=== PATIENT | female | born 1985 | race Asian ===

== ENCOUNTER 2025-06-10 11:12 | Emergency (ER) | payer BC, SELFPAY ==
[2025-06-10 11:15] VITALS: BP 105/71
--- NOTE | 2025-06-10 12:02 | ED.GENMED ---
History of Present Illness
General
Chief Complaint: Swelling
Source: patient
Exam Limitations: none
Time Seen by Provider: 06/10/25 11:56
Nursing documentation reviewed up to this point in time: agreed with
History of Present Illness
History of Present Illness:
39-year-old female with no significant past medical history presents for waxing and waning right arm swelling and heaviness for the past 3 days. She flew to and from [place] on 06/02 and 06/07. No other significant factors for blood
clots. She denies chest pain but states she does feel like she has to 'catch my breath,' at times. She denies numbness or tingling in the extremity it just 'feels heavy.'
Past History
Past History
ED Past Medical History: None
ED Past Surgical History:
Social History
Tobacco: Non-smoker
Alcohol: None
Personal:
Living: with family
Employment: Not employed
Review of Systems
Review of Systems
Allergies reviewed?: Yes
All Other Systems: ROS reviewed and negative except as documented in HPI and ROS
Phy Exam
Physical Exam
Physical Exam:
GENERAL: No acute distress. A&Ox3.
CONSTITUTIONAL: Afebrile.
EYES: clear, conjunctivae normal
ENMT: moist mucus membranes, Pharynx nl
RESPIRATORY: Regular respirations, nonlabored, lungs clear.
CARDIOVASCULAR: Regular rate and rhythm, no murmurs, no rubs.
GI: Soft, nontender, normal BS
MUSCULOSKELETAL: Moves with ease. Well perfused. Tender to palpate right upper trapezius and cervical soft tissues. Full ROM of neck, no spinal bony tenderness. Right arm slightly more swollen compared to left. Tender to palpate anterior
axillary area, (she does have a chronic soft tissue mass here that is from auxiliary excess breast tissue). Normal radial, ulnar and brachial pulses. Brisk capillary refill all fingers but slightly delayed in right fingers compared to left..
Strength 5/5, full ROM.
SKIN: Warm, dry, normal
PSYCH: Normal mood and affect. Well kept, interactive and appropriate
NEUROLOGIC: Awake, alert and oriented. No focal neurological deficits
Course
Orders/Labs/Results
Orders:
Orders
06/10/25 12:02
US Periph Venous UPPER Ext RT Urgent
Comment:
Reason For Exam: swelling, heaviness after flight
06/10/25 13:17
Test Result ONCE
06/10/25 14:07
Complete Blood Count/With Diff Urgent
Comprehensive Metabolic Panel Urgent
HCG, Serum Qualitative Screen Urgent
Protime/PTT Urgent
06/10/25 14:22
Apixaban [Eliquis] 10 mg PO NOW STA
06/10/25 16:04
Complete Blood Count/With Diff Urgent
Abnormal Lab Results
06/10/25 06/10/25
14:07 16:04
WBC 4.5 L 10^3/uL
(4.8-10.8)
RBC 6.22 H 10^6/uL 5.99 H 10^6/uL
(4.20-5.40) (4.20-5.40)
Hgb 11.2 L g/dL 11.0 L g/dL
(12.0-16.0) (12.0-16.0)
Hct 36.3 L %
(37.0-47.0)
MCV 60.5 L fL 60.6 L fL
(81.0-99.0) (81.0-99.0)
MCH 18.0 L pg 18.4 L pg
(27.0-31.0) (27.0-31.0)
MCHC 29.8 L g/dL 30.3 L g/dL
(33.0-37.0) (33.0-37.0)
RDW 15.8 H % 15.4 H %
(11.5-14.5) (11.5-14.5)
Monocytes % 11.9 H % 12.5 H %
(1.7-9.3) (1.7-9.3)
Chloride 108 H mmol/L
(98-107)
06/10/25 16:04
06/10/25 14:07
Vital Signs
Initial and Last Documented VS:
Initial Vital Signs
Temp Pulse Resp BP Pulse Ox
98.2 F 80 20 105/71 99
06/10/25 11:15 06/10/25 11:15 06/10/25 11:15 06/10/25 11:15 06/10/25 11:15
Last Documented Vital Signs
Temp Pulse Resp BP Pulse Ox
98.2 F 68 17 98/63 100
06/10/25 17:02 06/10/25 17:02 06/10/25 17:02 06/10/25 17:02 06/10/25 17:02
[employer] [employer] Operator consulted with Physician
[place] [employer] Operator consulted with physician?: Yes
Name of Physician Consulted: Akila
MDM/Problems Addressed
Differential Diagnosis Includes:
DVT, arterial occlusion
MDM/Problems Addressed:
39-year-old female with no significant past medical history presents for waxing and waning right arm swelling and heaviness for the past 3 days. She flew to and from [place] and [place] on 06/02 and 06/07. No other significant factors for blood
clots. She denies chest pain but states she does feel like she has to 'catch my breath,' at times. She denies numbness or tingling in the extremity it just 'feels heavy.'
Ultrasound result texted to me by the radiologist: occlusive thrombus in the R subclavian and axillary veins
No sign of arterial embarrassment.
1:30 PM:
Consulted assembler bicycle Dr. Hernandez who states nothing else needs to be done acutely, he states most likely be TOS, venous thoracic outlet syndrome. He states she should see vascular for that that is something that he can arrange. He request that we
have her call the new patient hotline at [phone]
Discussed with patient and possible side effects of Eliquis and complications of DVT and anticoagulants. All questions answered.
Rx for Eliquis sent to her pharmacy
CBC reveals iron deficiency anemia, patient states she has been diagnosed with beta thalassemia and iron deficiency anemia in the past
Platelets could not be counted because they are clumped. Will check them again
4:30 PM: Platelet count 186
Patient stable for discharge.
*Pulse Oximetry
SaO2: 99
Oxygen Mode of Delivery: Room air
Patient hypoxic: no
*Critical Care Note
Total Time (30-74mins, 75-104mins- exclusive of procedures): Not Applicable
ED Attending Note
-
Portions of this chart may have been created with voice recognition software.� Occasional wrong word or��sound alike� substitutions may have occurred due to the inherent limitations of voice recognition software.
Discharge Plan
Departure
Patient Disposition: Home (Routine Discharge)
Date of Disposition: 06/10/25
Time of Disposition: 16:30
Patient with high blood pressure during this ER visit?: No
Condition: Good
Discharge Problem:
Acute deep vein thrombosis (DVT) of brachial vein of right upper extremity, DVT right subclavian vein
Instructions: Thoracic Outlet Syndrome (DC), Apixaban, Deep vein thrombosis (DC)
Prescriptions:
New
Eliquis 5 mg tablet
5 mg PO BID Qty: 70 0RF
Rx Instructions:
10 mg BID x 7 days then 5 mg BID until further instructed
Referrals:
NONE,* [Family Provider, Internal Medicine]
Sanjiv Hernandez MD [Active, Hematology / Oncology] - Call in 1-3 days for appt
Activity Restrictions/Additional Instructions:
As we discussed, I spoke with the assembler bicycle and he believes your symptoms are consistent with 'venous thoracic outlet syndrome.'
Call his office at [phone] to make a follow-up appointment.
Return here immediately for shortness of breath, chest pain or feeling sicker in any way.
Return here immediately for worsening pain, swelling, discoloration, pallor of the right arm.
Interventions
Interventions:
*Risk Screen - Suicide Last Done: 06/10/25 11:15
*General Assessment Last Done: 06/10/25 11:15
*Neglect/Abuse Screening Last Done: 06/10/25 11:15
*ED- Fall Risk Assessment Last Done: 06/10/25 11:15
*ED COVID-19 Vaccine History Last Done: 06/10/25 11:15
*ED Influenza Vaccine History Last Done: 06/10/25 11:15
*Nursing Disposition Last Done: 06/10/25 17:02
ED- Cardiac Assessment Last Done: 06/10/25 12:00
ED- Pulmonary Assessment Last Done: 06/10/25 12:00
ED-Skin Assessment Last Done: 06/10/25 12:00
Discharge Date and Time
Discharge Date/Time: 06/10/25 17:04
Print Language: GREENLANDIC
[2025-06-10 14:31] LABS: APTT 28.6 Sec (23.4-35.0); INR 1.05; PT 14.0 Sec (11.4-14.6)
[2025-06-10 14:37] LABS: HCG, Serum Qualitative Screen Negative
[2025-06-10] MEDS: ELIQUIS 10 MG PO (14:46)
[2025-06-10 14:48] LABS: Hematocrit 37.6 % (37.0-47.0); Hemoglobin 11.2 g/dL (12.0-16.0); Mean Corp Hgb Conc. 29.8 g/dL (33.0-37.0); Mean Corpuscular Volume 60.5 fL (81.0-99.0); Red Cell Dist. Width 15.8 % (11.5-14.5)
[2025-06-10 14:49] LABS: Nucleated Red Blood Cells % 0 %
[2025-06-10 14:54] LABS: ALT (SGPT) 19 U/L (0-35); AST (SGOT) 24 U/L (14-36); Albumin 4.6 g/dl (3.5-5.0); Alkaline Phosphatase 53 U/L (38-126); Blood Urea Nitrogen 13 mg/dl (7-17); Calcium 9.2 mg/dl (8.4-10.2); Carbon Dioxide 23 mmol/L (22-30); Chloride 108 mmol/L (98-107); Glucose 90 mg/dl (70-99); Potassium 4.6 mmol/L (3.5-5.1); Sodium 138 mmol/L (135-145); Total Protein 7.4 g/dl (6.3-8.2); eGFR > 60.00
[2025-06-10 16:20] LABS: Hematocrit 36.3 % (37.0-47.0); Hemoglobin 11.0 g/dL (12.0-16.0); Mean Corp Hgb Conc. 30.3 g/dL (33.0-37.0); Mean Corpuscular Volume 60.6 fL (81.0-99.0); Nucleated Red Blood Cells % 0 %; Platelet Count 186 10^3/uL (130-400); Red Cell Dist. Width 15.4 % (11.5-14.5)
[2025-06-10 17:02] VITALS: BP 98/63
== END 2025-06-10 17:04 | disposition home or self-care (01) ==
LOC: EMR 11:12
PROVIDERS: Registered Nurse; EMERGENCY PHYSICIAN Emergency Medicine
DX: I82.621 Acute embolism and thrombosis of deep veins of right upper extremity (principal); I82.B11 Acute embolism and thrombosis of right subclavian vein; D50.9 Iron deficiency anemia, unspecified; D56.1 Beta thalassemia
CPT/HCPCS: 99284; 80053; 84703; 85025; 85610; 85730; 93971

== ENCOUNTER 2025-07-02 11:32 | Emergency (ER) | payer BC, SELFPAY ==
[2025-07-02 11:35] VITALS: BP 116/85
--- NOTE | 2025-07-02 12:01 | ED.GENMED ---
History of Present Illness
<Chayo Wilder RANGE OPERATOR - Last Filed: 07/02/25 19:11>
General
Chief Complaint: Numbness
Source: patient
Exam Limitations: none
Time Seen by Provider: 07/02/25 12:01
Nursing documentation reviewed up to this point in time: agreed with
History of Present Illness
History of Present Illness:
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
missed dose. Presents for numbness in left lower leg and thigh and left forearm. Denies CP, SOB.
Past History
<Chayo Wilder, RANGE OPERATOR - Last Filed: 07/02/25 19:11>
Past History
ED Past Medical History: Other (DVT R subclavian and axillary veins on Eliquis) and Other (Thalassemia minor, iron deficiency anemia)
ED Past Surgical History:
Social History
Tobacco: Non-smoker
Alcohol: None
Personal:
Living: with family
Employment: Not employed
Review of Systems
<Chayo Wilder, RANGE OPERATOR - Last Filed: 07/02/25 19:11>
Review of Systems
Allergies reviewed?: Yes
All Other Systems: ROS reviewed and negative except as documented in HPI and ROS
Constitutional: Denies fever or fatigue
Respiratory: Denies trouble breathing
Cardiac: Denies chest pain
ABD/GI: Reports nausea and vomiting (several times yesterday, feeling better today, no n/v); Denies abdominal pain, diarrhea or anorexia
: Denies dysuria, incontinence or difficulty voiding
Musculoskeletal: Reports no symptoms
Skin: Reports no symptoms
Neurological: Reports numbness; Denies dizzy, headache or weakness
Phy Exam
<Chayo V. Day, RANGE OPERATOR - Last Filed: 07/02/25 19:11>
Physical Exam
Physical Exam:
GENERAL: No acute distress. A&Ox3.
CONSTITUTIONAL: Afebrile.
EYES: clear, conjunctivae normal
ENMT: moist mucus membranes, Pharynx nl
RESPIRATORY: Regular respirations, nonlabored, lungs clear.
CARDIOVASCULAR: Regular rate and rhythm, no murmurs, no rubs.
GI: Soft, nontender, normal BS
MUSCULOSKELETAL: Moves with ease. Well perfused.
SKIN: Warm, dry, pink
PSYCH: Normal mood and affect. Well kept, interactive and appropriate
NEUROLOGIC: Awake, alert and oriented. Subjective numbness anterior lower left leg and thigh, left forearm. Sensation to sharp and dull intact all areas. Subltle LUE drift. Strength 5/5 throughout. Patellar and brachial reflexes normal.
Course
<Chayo Wilder, RANGE OPERATOR - Last Filed: 07/02/25 19:11>
Orders/Labs/Results
Orders:
Orders
07/02/25 11:44
CT HEAD STROKE ALERT W/o Cont Urgent
Reason For Exam: weakness LE
07/02/25 11:45
Test Result ONCE
07/02/25 11:56
CBC/With Diff [Complete Blood Count/With Diff] Urgent
Comprehensive Metabolic Panel Urgent
HCG, Serum Qualitative Screen Urgent
PT/INR [Prothrombin Time] Urgent
07/02/25 12:33
CT HEAD/NECK ANG STROKE ALERT Urgent
Comment:
Reason For Exam: numbness left leg and arm
07/02/25 12:35
EKG [Electrocardiogram (*1)] Urgent
Reason for Study: TIA/Stroke
EKG- Treatment ONCE
07/02/25 13:58
US Periph Venous UPPER Ext RT Urgent
Comment:
Reason For Exam: Recent occlusive thrombus in the right subclavian
Abnormal Lab Results
07/02/25 07/02/25
11:56 12:36
WBC 3.2 L 10^3/uL
(4.8-10.8)
RBC 6.18 H 10^6/uL
(4.20-5.40)
Hgb 11.2 L g/dL
(12.0-16.0)
MCV 60.2 L fL
(81.0-99.0)
MCH 18.1 L pg
(27.0-31.0)
MCHC 30.1 L g/dL
(33.0-37.0)
RDW 15.6 H %
(11.5-14.5)
Absolute Lymphs (auto) 0.9 L 10^3/uL
(1.2-3.4)
Monocytes % 13.7 H %
(1.7-9.3)
PT 17.6 H Sec
(11.4-14.6)
BUN 21 H mg/dl
(7-17)
POC Glucose 106 H mg/dl
(70-99)
07/02/25 11:56
07/02/25 11:56
Vital Signs
Initial and Last Documented VS:
Initial Vital Signs
Temp Pulse Resp BP Pulse Ox
97.5 F 78 16 116/85 98
07/02/25 11:35 07/02/25 11:35 07/02/25 11:35 07/02/25 11:35 07/02/25 11:35
Last Documented Vital Signs
Temp Pulse Resp BP Pulse Ox
97.5 F 84 11 111/83 100
07/02/25 11:35 07/02/25 16:30 07/02/25 14:30 07/02/25 16:00 07/02/25 16:15
<Anibal Hollins MD - Last Filed: 07/03/25 12:53>
Orders/Labs/Results
Orders:
Orders
07/02/25 11:44
CT HEAD STROKE ALERT W/o Cont Urgent
Reason For Exam: weakness LE
07/02/25 11:45
Test Result ONCE
07/02/25 11:56
CBC/With Diff [Complete Blood Count/With Diff] Urgent
Comprehensive Metabolic Panel Urgent
HCG, Serum Qualitative Screen Urgent
PT/INR [Prothrombin Time] Urgent
07/02/25 12:33
CT HEAD/NECK ANG STROKE ALERT Urgent
Comment:
Reason For Exam: numbness left leg and arm
07/02/25 12:35
EKG [Electrocardiogram (*1)] Urgent
Reason for Study: TIA/Stroke
EKG- Treatment ONCE
07/02/25 13:58
US Periph Venous UPPER Ext RT Urgent
Comment:
Reason For Exam: Recent occlusive thrombus in the right subclavian
Abnormal Lab Results
07/02/25 07/02/25
11:56 12:36
WBC 3.2 L 10^3/uL
(4.8-10.8)
RBC 6.18 H 10^6/uL
(4.20-5.40)
Hgb 11.2 L g/dL
(12.0-16.0)
MCV 60.2 L fL
(81.0-99.0)
MCH 18.1 L pg
(27.0-31.0)
MCHC 30.1 L g/dL
(33.0-37.0)
RDW 15.6 H %
(11.5-14.5)
Absolute Lymphs (auto) 0.9 L 10^3/uL
(1.2-3.4)
Monocytes % 13.7 H %
(1.7-9.3)
PT 17.6 H Sec
(11.4-14.6)
BUN 21 H mg/dl
(7-17)
POC Glucose 106 H mg/dl
(70-99)
07/02/25 11:56
07/02/25 11:56
Vital Signs
Initial and Last Documented VS:
Initial Vital Signs
Temp Pulse Resp BP Pulse Ox
97.5 F 78 16 116/85 98
07/02/25 11:35 07/02/25 11:35 07/02/25 11:35 07/02/25 11:35 07/02/25 11:35
Last Documented Vital Signs
Temp Pulse Resp BP Pulse Ox
97.5 F 84 11 111/83 100
07/02/25 11:35 07/02/25 16:30 07/02/25 14:30 07/02/25 16:00 07/02/25 16:15
<Chayo Wilder, RANGE OPERATOR - Last Filed: 07/02/25 19:11>
MDM/Problems Addressed
Differential Diagnosis Includes:
stroke, ICH, Guillain Paragon
MDM/Problems Addressed:
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
missed dose. Presents for numbness in left lower leg and thigh and left forearm. Denies CP, SOB.
Has followed up with cook helper fruit Dr. Hernandez who recommended she follow-up with a vascular surgeon. Her 's insurance does not cover vascular surgeons here or at [place]. He states his unions doctors are either in [place] or in [place]. He
has a sister who lives in [place] and they will be calling the number provided by their insurance company for a vascular surgeon there.
Since they have not been able to follow-up yet they are requesting a repeat ultrasound of the right upper extremity
12:[address] Hollins in to evaluate. Stroke alert called, Neurology in. Pt to CT scan.
CBC: No clinically significant abnormality, consistent with previous
CMP: normal
HCG neg
PT 17.6 INR 1.42
Neurology Chalo Harry evaluated patient, after workup here today he states she is stable to go home. Head and neck CTA results reviewed, he does not believe the 4 mm segment of severe stenosis of the proximal right vertebral artery is causing
symptoms.
Ultrasound right upper extremity done: Radiology report: IMPRESSION: Improved DVT of the right upper extremity.
Discs for all studies provided to patient as well as copies of all results.
<Chayo Wilder NP - Last Filed: 07/02/25 19:11>
*Pulse Oximetry
SaO2: 98
Oxygen Mode of Delivery: Room air
Patient hypoxic: no
*Critical Care Note
Total Time (30-74mins, 75-104mins- exclusive of procedures): Not Applicable
ED Attending Note
<Chayo Wilder NP - Last Filed: 07/02/25 19:11>
-
Portions of this chart may have been created with voice recognition software.� Occasional wrong word or��sound alike� substitutions may have occurred due to the inherent limitations of voice recognition software.
<Anibal Hollins MD - Last Filed: 07/03/25 12:53>
ED Attending Note
Patient seen and examined by attending physician: Yes
I performed the substantive portion of visit, reviewed & personally made and approve the management plan that is documented in note by myself or GENA.: Yes
ED Attending Note:
39-year-old female subjective paresthesias to the left lower leg yesterday. Progressed up the leg and now including the left arm. At times today even felt slightly to the left face. No speech issues gait issues ataxia or other complaints.
Patient is on Eliquis for a clot to the right arm. Etiology uncertain at this time.
On exam patient is nontoxic in no distress. Extraocular muscles intact. Speech normal. Cranial nerves II through XII intact. She has a very subtle very mild left arm drift. Novoui-zr-edue normal. Straight leg raising normal. Light touch
pinprick and graphesthesia intact. Although subjectively feels some sensory changes to the left arm and leg.
Impression is focal sensory changes to the left arm and leg with a questionable slight subtle drift of the left arm. Patient is anticoagulated.
Stroke alert was called mostly to expedite workup. Not a thrombolytic candidate. CT head negative. CT angio pending.
Head CT neg. CTA with short segment vertebralk stenosis. Cleared ny neuro for d/c
Discharge Plan
Departure
Patient Disposition: Home (Routine Discharge)
Date of Disposition: 07/02/25
Time of Disposition: 16:26
Patient with high blood pressure during this ER visit?: No
Condition: Good
Discharge Problem:
Paresthesia of left arm and leg
Instructions: Paresthesia (DC)
Prescriptions:
No Action
Eliquis 5 mg tablet
5 mg PO BID Qty: 70 0RF
Rx Instructions:
10 mg BID x 7 days then 5 mg BID until further instructed
Referrals:
Your, Doctor [Other] - As needed
Vascular Doctor [Other] - Next open appointment
UNKNOWN - PT DOES,NOT KNOW [Family Provider]
Activity Restrictions/Additional Instructions:
As was discussed with the neurologist, nothing worrisome showing up in your workup here today.
Continue to observe the numbness, if not gone within 2 weeks, see your doctor for recheck.
You may return at any time if symptoms worsen or anything worries you.
Call the Vascular Surgeon your insurance company recommended and make next available appointment. Take copies of all your studies and results with you.
Interventions
Interventions:
*Risk Screen - Suicide Last Done: 07/02/25 11:35
*General Assessment Last Done: 07/02/25 12:21
*Neglect/Abuse Screening Last Done: 07/02/25 11:35
*ED- Fall Risk Assessment Last Done: 07/02/25 12:21
*ED COVID-19 Vaccine History Last Done: 07/02/25 12:21
*ED Influenza Vaccine History Last Done: 07/02/25 12:21
*Nursing Disposition Last Done: 07/02/25 16:40
ED- Neurological Assessment Last Done: 07/02/25 13:01
Discharge Date and Time
Discharge Date/Time: 07/02/25 16:43
Print Language: EAST TIMOR[place]
[2025-07-02 12:07] VITALS: BP 114/78
[2025-07-02 12:15] LABS: HCG, Serum Qualitative Screen Negative; Hematocrit 37.2 % (37.0-47.0); Hemoglobin 11.2 g/dL (12.0-16.0); Mean Corp Hgb Conc. 30.1 g/dL (33.0-37.0); Mean Corpuscular Volume 60.2 fL (81.0-99.0); Nucleated Red Blood Cells % 0 %; Platelet Count 214 10^3/uL (130-400); Red Cell Dist. Width 15.6 % (11.5-14.5)
[2025-07-02 12:19] LABS: ALT (SGPT) 19 U/L (0-35); AST (SGOT) 26 U/L (14-36); Albumin 4.3 g/dl (3.5-5.0); Alkaline Phosphatase 49 U/L (38-126); Blood Urea Nitrogen 21 mg/dl (7-17); Calcium 9.1 mg/dl (8.4-10.2); Carbon Dioxide 27 mmol/L (22-30); Chloride 104 mmol/L (98-107); Glucose 99 mg/dl (70-99); Potassium 4.0 mmol/L (3.5-5.1); Sodium 136 mmol/L (135-145); Total Protein 7.1 g/dl (6.3-8.2); eGFR > 60.00
[2025-07-02 12:24] LABS: INR 1.42; PT 17.6 Sec (11.4-14.6)
[2025-07-02 12:38] LABS: Glucose - Point of Care 106 mg/dl (70-99)
[2025-07-02 13:00] VITALS: BP 108/76
[2025-07-02 14:00] VITALS: BP 101/72
--- NOTE | 2025-07-02 14:01 | CON.NEURO ---
Neuro Assessment/Plan
Assessment
#Left sided numbness
Inital NIHSS was 3 but on re-examination, her exam was largely normal. She split the midline to vibratory sensation on the forehead. This wouldn't be physiologic. The rest of her sensory exam was normal and also no weakness on exam. She is already
on eliquis for a DVT. I don't think her symptoms are from a TIA or stroke. Seizure is unlikely becuse no seizure actibity was noted. Hemiplegic migraine but she doesn't have a significant migraine history to make this diagnosis and no headache with
this episode. She also had vomiting and nausea yesterday which would be more consistent with a posterior circulation stroke but denied vertigo, which also would be unusual and not associated with L sided numbness. her CTA showed a right vert
stenosis which wouldn't cause L sided numbness and not implicated in these symptoms.
Plan
- no further neurologic work-up at this time
Consultation
Order
Date of Consultation: 07/02/25
Requesting Provider:
Reason for Consult: Left sided weakness
Subjective/Objective
Subjective Data
Date of Service: July 02, 2025
HPI: 39 y.o. right handed female with PMH of thalassemia minor, RUE subclavian DVT (Dx 06/10/25; on eliquis and reports compliance). She had a brief 15 minute episode of L sided numbness leg > arm > face yesterday (07/01/25; day prior to
presentation) that self resovled. She had an episode of vomiting for unclear reasons that resolved. Today at 8am (LKN 8am 07/02/25) she again developed L sided numbness leg > arm > face. Numbness wasn't weakness and felt more like numbing medicine
you get at the dentist. It became worse and then peaked and stopped getting worse. It hasn't improved. CT showed no hemorrhage and CTA showed R vert stenosis but no occlusion. No LVO.
Past History
DVT R subclavian and axillary veins on Eliquis and Thalessemia
ED Past Surgical History:
FH: Grandmother had stroke later in life
Allergies: NKDA
Meds: per chart
Social History
Tobacco: Non-smoker
Alcohol: None
Drugs: None
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
Lives with and 2 kids
Objective Data
Vital Signs
Temp Pulse Resp BP Pulse Ox
36.4 C 78 16 116/85 98
07/02/25 11:35 07/02/25 11:35 07/02/25 11:35 07/02/25 11:35 07/02/25 12:07
Lab Results
07/02/25 11:56
07/02/25 11:56
PT 17.6 Sec (11.4-14.6) H 07/02/25 11:56
INR 1.42 07/02/25 11:56
Sodium 136 mmol/L (135-145) 07/02/25 11:56
Potassium 4.0 mmol/L (3.5-5.1) 07/02/25 11:56
BUN 21 mg/dl (7-17) H 07/02/25 11:56
Glucose 99 mg/dl (70-99) 07/02/25 11:56
Calcium 9.1 mg/dl (8.4-10.2) 07/02/25 11:56
Patient Allergies
No Known Allergies Allergy (Unverified 06/10/25 11:14)
CVA Assessment
Onset of Stroke Symptoms
Onset of symptoms known: Yes
Date of onset of symptoms: 07/02/25
Time of onset of symptoms: 08:00
Time pt last seen normal is known: Yes
Date last time pt seen normal: 07/02/25
Time last time pt seen normal: 08:00
NIH Stroke Score
Level of Consciousness: 0 - Alert
LOC Questions: 0-Answers both correctly
LOC Commands: 0-Performs both correctly
Best Horizontal Gaze: 0-Normal
Visual Larsen: 0=Normal, no visual loss
Facial Palsy: 0=Normal, symmetrical
Motor - Right Arm: 0=No drift 10 seconds
Motor - Left Arm: 1=Drift < 10 seconds
Motor - Right Le-No drift 5 seconds
Motor - Left Le-Drift < 5 seconds
Limb Ataxia: 0-Absent
Sensation: 1-Mild loss
Best Language: 0-No aphasia
Dysarthria: 0-Normal
Extinction and Inattention: 0-No abnormality
NIH Total Score:: 3
Tenecteplase Contraindications
Inclusion and Exclusion criteria reviewed: Yes
Reasons for NON-Tx with Thrombolytics ABSOLUTE Exclusions: Patient taking oral anticoagulant and last dose within 48 hours
Review of Systems
-
All other systems: Reviewed and negative
Physical Exam
-
General: Well Developed, Well Nourished and No Apparent Distress
Eyes: Unremarkable and No Ptosis
HEENT: Normocephalic, Atraumatic and Anicteric
Respiratory: Clear to Auscultation
Cardiac: Regular Rhythm
GI: Normal Bowel Sounds
Skin: Unremarkable
Extremities: No Clubbing
Psych: Unremarkable
Extended Neurological Exam
Mood & Affect: Mood Unremarkable and Affect Unremarkable
Attention Span & Concentration: Awake, Alert, Interactive and No Difficulty with 2 Step Request
Memory: Unremarkable
Tremor: Hand Tremor Absent
Involuntary Movement: None
Speech: Quality Unremarkable, Quantity Unremarkable and Rate of Production Unremarkable
Cranial Nerve II: Left Eye: Pupillary Reactivity Unremarkable, Pupillary Size Unremarkable and Visual Larsen Intact
Cranial Nerve II: Right Eye: Pupillary Reactivity Unremarkable, Pupillary Size Unremarkable and Visual Larsen Intact
Cranial Nerves III, IV, : Extraocular Movement: Extraocular Movement Full in all Directions and No Ptosis
Cranial Nerve V: Facial Sensation: Reduced (decreased sensation to vibration on Left side of forehead compared to right)
Cranial Nerve VII: Facial Symmetry: Normal Facial Symmetry
Cranial Nerve VIII: Hearing: Unremarkable Hearing to Normal Conversational Volume
Cranial Nerves IX, X: Palate Movement: Palate Elevation Symmetric
Cranial Nerve XI: Shoulder Shrug: Unremarkable
Cranial Nerve XII: Tongue Protusion: Midline
Muscle Strength, Overall: Full Throughout
Muscle Bulk & Tone: Bulk Unremarkable and Tone Unremarkable
Pronator Drift: No Drift in Upper Extremities and No Drift in Lower Extremities
Deep Tendon Reflexes: Unremarkable Throughout
Vibration Sensation: Unremarkable
Touch Sensation: Unremarkable
Coordination: [id number] Testing Unremarkable
Gait & Station: Unremarkable Arm Swing and Up from Seated Without Problem
Data Reviewed
-
CT-A: Image Reviewed (severe stenosis of proximal right vertebral artery)
CT Head: Image Reviewed (no acute hemorrhage)
Medications
-
Home Medications
�Medication �Instructions �Recorded
apixaban 5 mg tablet (Eliquis) 5 mg PO BID #70 tabs 06/10/25
[2025-07-02 16:00] VITALS: BP 111/83
== END 2025-07-02 16:43 | disposition home or self-care (01) ==
LOC: EMR 11:32
PROVIDERS: EMERGENCY PHYSICIAN Emergency Medicine
DX: R20.2 Paresthesia of skin (principal); D56.3 Thalassemia minor; D50.9 Iron deficiency anemia, unspecified; I65.01 Occlusion and stenosis of right vertebral artery; Z79.01 Long term (current) use of anticoagulants; Z86.718 Personal history of other venous thrombosis and embolism; Z82.3 Family history of stroke
CPT/HCPCS: 99284; 70450; 70496; 70498; 80053; 82962; 84703; 85025; 85610; 93005; 93971; Q9967

== ENCOUNTER → 2025-07-07 11:58 | Outpatient (REF) | payer OTHER, BC, SELFPAY ==
[2025-07-07 14:13] LABS: Blood Urea Nitrogen 12 mg/dl (7-17)
== END ==
LOC: RAD 11:58
PROVIDERS: ATTENDING PHYSICIAN Nurse Practitioner Gerontology; FAMILY PHYSICIAN Family Medicine
DX: G54.0 Brachial plexus disorders (principal); I82.B19 Acute embolism and thrombosis of unspecified subclavian vein
CPT/HCPCS: 36415; 71046; 82565; 84520

== ENCOUNTER → 2025-07-28 08:36 | Outpatient (REF) | payer OTHER, BC, SELFPAY | LOC: EMG 08:36 | PROVIDERS: ATTENDING PHYSICIAN Nurse Practitioner Gerontology; FAMILY PHYSICIAN Family Medicine | DX: G54.0 Brachial plexus disorders (principal); S13.4XXD Sprain of ligaments of cervical spine, subsequent encounter; R20.2 Paresthesia of skin; R20.0 Anesthesia of skin | CPT/HCPCS: 95886; 95912 ==